=== PATIENT | female | born 1945 | race Caucasian/White ===

== ENCOUNTER 2020-10-27 13:47 | Emergency (ER) | payer OTHER ==
[~2020-10-27] VITALS: Ht 162.6 cm; Wt 81.7 kg
[2020-10-27 15:38] VITALS: BP 154/70
== END 2020-10-27 15:39 | disposition home or self-care (01) ==
LOC: M.ERS 13:47
DX: S61.210A Laceration without foreign body of right index finger without damage to nail, initial encounter (principal); Z87.442 Personal history of urinary calculi; Z88.5 Allergy status to narcotic agent; X50.9XXA Other and unspecified overexertion or strenuous movements or postures, initial encounter; Y93.89 Activity, other specified; Y92.89 Other specified places as the place of occurrence of the external cause; Y99.8 Other external cause status

== ENCOUNTER 2020-11-06 12:36 | Emergency (ER) | payer OTHER ==
[~2020-11-06] VITALS: Ht 152.4 cm; Wt 77.1 kg
[2020-11-06 13:01] VITALS: BP 184/63
== END 2020-11-06 13:01 | disposition home or self-care (01) ==
LOC: M.ERS 12:36
DX: S61.210D Laceration without foreign body of right index finger without damage to nail, subsequent encounter (principal); Z87.442 Personal history of urinary calculi; Z88.5 Allergy status to narcotic agent; Z88.6 Allergy status to analgesic agent; X58.XXXD Exposure to other specified factors, subsequent encounter